=== PATIENT | male | born 1985 | race American Indian/Alaskan Native ===

== ENCOUNTER 2022-02-15 18:58 | Emergency (ER) | payer SELFPAY ==
[2022-02-15] MEDS ORDERED: ACETAMINOPHEN 325 MG TAB PO ONE (21:11)
--- NOTE | 2022-02-15 21:56 | XRay Report ---
Cervical spine 4 views INDICATION: Neck pain following injury IMPRESSION: No fracture or subluxation is identified. There is mild dextrocurvature of the cervical s pine. Signer Name: Dmitry Mccauley MD Signed: 02/15/2022 9:52 PM Workstation Name: [id number]
[2022-02-15] MEDS ORDERED: ACETAMINOPHEN W/CODEINE 300-30 MG TAB PO ONE (23:39)
[2022-02-15] MEDS ORDERED: CYCLOBENZAPRINE 10 MG TAB PO ONE (23:39)
[2022-02-15] MEDS ORDERED: KETOROLAC 10 MG TAB PO ONE (23:39)
[2022-02-15] MEDS ORDERED: dexAMETHasone 4 MG/ML VIAL IM ONE (23:39)
--- NOTE | 2022-02-15 23:45 | Emergency Department Report ---
ED Neck Pain/Injury HPI - General Chief Complaint: Neck Pain/Injury Stated Complaint: SEVERE NECK PAIN Time Seen by Provider: 02/15/22 23:33 Mode of arrival: Ambulatory Limitations: No Limitations - History of Present Illness Initial Comments: 36-year-old black male with no past medical history presents to the emergency department for evaluation of neck pain. He states that he woke up yesterday with pain in his neck and he has been getting worse since then. He denies injury or trauma but states that he is unable to move her neck without severe pain. He denies headache, vision changes, or numbness and tingling in arms. MD Complaint: neck pain -: Sudden, days(s) (1) Place: home Severity: severe Severity scale (0 -10): 10 Quality: aching Consistency: constant Worsens With: movement of neck Context: unknown Associated Symptoms: denies: headache, fever, numbness, tingling, weakness, swollen glands, difficulty swallowing, nausea, vomiting Treatments Prior to Arrival: none - Related Data Previous Rx's Medication Instructions Recorded Last Taken Type Cyclobenzaprine [Flexeril] 10 mg PO TID PRN #21 tab 02/15/22 Unknown Rx Lidocaine [Lidoderm] 1 each TP DAILY PRN #10 patch 02/15/22 Unknown Rx Naproxen [Naprosyn] 500 mg PO BID #14 tab 02/15/22 Unknown Rx methylPREDNISolone [Medrol 4MG 4 mg PO DAILY #1 pack 02/15/22 Unknown Rx DOSEPAK (21 tabs)] Allergies Allergy/AdvReac Type Severity Reaction Status Date / Time No Known Allergies Allergy Verified 02/15/22 21:11 ED Review of Systems ROS: Stated complaint: SEVERE NECK PAIN Other details as noted in HPI Comment: All other systems reviewed and negative Constitutional: denies: chills, fever, weakness Eyes: denies: eye pain, eye discharge, vision change ENT: denies: throat pain, congestion Respiratory: denies: cough, shortness of breath, SOB with exertion, SOB at rest, stridor, wheezing Cardiovascular: denies: chest pain, palpitations, syncope Gastrointestinal: denies: abdominal pain, nausea, vomiting Musculoskeletal: denies: back pain Neurological: denies: headache, weakness, numbness, paresthesias, confusion, abnormal gait, vertigo ED Past Medical Hx - Medications Home Medications: Home Medications Medication Instructions Recorded Confirmed Last Taken Type Cyclobenzaprine [Flexeril] 10 mg PO TID PRN #21 tab 02/15/22 Unknown Rx Lidocaine [Lidoderm] 1 each TP DAILY PRN #10 patch 02/15/22 Unknown Rx Naproxen [Naprosyn] 500 mg PO BID #14 tab 02/15/22 Unknown Rx methylPREDNISolone [Medrol 4MG 4 mg PO DAILY #1 pack 02/15/22 Unknown Rx DOSEPAK (21 tabs)] ED Physical Exam - General Limitations: No Limitations General appearance: alert, in no apparent distress - Head Head exam: Present: atraumatic, normocephalic - Eye Eye exam: Present: normal appearance. Absent: conjunctival injection, periorbital swelling, periorbital tenderness - Neck Neck exam: Present: normal inspection. Absent: tenderness, meningismus, full ROM, lymphadenopathy - Expanded Neck Exam Expanded Neck exam: Present: tenderness (Bilateral sides). Absent: midline deformity, anterior neck swelling, tracheal deviation - Respiratory Respiratory exam: Present: normal lung sounds bilaterally. Absent: respiratory distress, wheezes, rales, rhonchi, stridor, chest wall tenderness - Cardiovascular Cardiovascular Exam: Present: regular rate, normal heart sounds - GI/Abdominal GI/Abdominal exam: Present: soft, normal bowel sounds. Absent: distended, tenderness, guarding, rebound, rigid - Extremities Exam Extremities exam: Present: normal inspection, normal capillary refill. Absent: pedal edema, joint swelling, calf tenderness - Back Exam Back exam: Present: normal inspection. Absent: CVA tenderness (R), CVA tenderness (L), vertebral tenderness - Neurological Exam Neurological exam: Present: alert, oriented X3 - Psychiatric Psychiatric exam: Present: normal affect, normal mood - Skin Skin exam: Present: warm, dry, intact, normal color ED Course Vital Signs 02/15/22 02/16/22 21:13 00:08 Temperature 98.3 F Pulse Rate 67 66 Respiratory 18 Rate Blood Pressure 126/88 132/89 [Right] O2 Sat by Pulse 98 Oximetry ED Medical Decision Making - Medical Decision Making 36-year-old black male with no past medical history presents to the emergency department for evaluation of neck pain. He states that he woke up yesterday with pain in his neck and he has been getting worse since then. He denies injury or trauma but states that he is unable to move her neck without severe pain. He denies headache, vision changes, or numbness and tingling in arms. Exam consistent with musculoskeletal pain only. Patient will be given Decadron shot, Toradol, and Flexeril in the emergency department and discharged home with Medrol Dosepak, naproxen, and Lidoderm patch to use for pain. He is advised to take medications as prescribed, follow-up with primary care provider for further evaluation and management, and return to the emergency department for any concerning symptoms. He verbalized understanding of and agreement with plan of care. Critical care attestation.: If time is entered above; I have spent that time in minutes in the direct care of this critically ill patient, excluding procedure time. ED Disposition Clinical Impression: Neck pain Disposition: 01 HOME / SELF CARE / HOMELESS Is pt being admited?: No Does the pt Need Aspirin: No Condition: Stable Instructions: Musculoskeletal Pain Additional Instructions: Take medications as prescribed. Follow-up with primary care provider if no improvement or worsening symptoms. Return to the emergency department as needed. Prescriptions: Cyclobenzaprine [Flexeril] 10 mg PO TID PRN #21 tab PRN Reason: Muscle Spasm Lidocaine [Lidoderm] 1 each TP DAILY PRN #10 patch PRN Reason: Pain, Moderate (4-6) methylPREDNISolone [Medrol 4MG DOSEPAK (21 tabs)] 4 mg PO DAILY #1 pack Naproxen [Naprosyn] 500 mg PO BID #14 tab Referrals: VALECNIA JUNIOR MD [Staff Physician] - 3-5 Days Forms: Work/School Release Form(ED) Time of Disposition: 23:45
[2022-02-16 00:12] VITALS: BP 132/89
== END 2022-02-16 00:33 | disposition home or self-care (01) ==
LOC: ED 18:58
DX: M54.2 Cervicalgia (principal)
CPT/HCPCS: 72040; 96372; 99283; J1100